=== PATIENT | female | born 1940 | race Caucasian/White ===

== ENCOUNTER 2018-11-12 08:56 | Day surgery (SDC) | payer OTHER ==
--- OUTSIDE RECORDS SUMMARY | 2018-11-12 08:58 | XMS REPORT ---
:1940 Author Organization [facility] Address [address] [place] [address] Dr[address] Moore [address] [place] [id number] Care Team Providers Name Role Phone Unavailable Unavailable Unavailable Payers Payer Name Policy Type Policy Number Effective Date Expiration Date Problems This patient has no known problems. Allergies, Adverse Reactions, Alerts Allergy Allergy Status Severity Reaction(s) Onset Inactive Treating Comments Name Type Date Date Clinician No Known DA Active U 2018-07 Drug -14 Allergies 00:00:0 0 No Known DA Active U 2010-07 Allergies -21 00:00:0 0 Medications This patient has no known medications.
[2018-11-12 09:46] VITALS: TEMP 97.2; O2SAT 95; BMI 38.9
[2018-11-12] MEDS ORDERED: Zoledronic Acid/Mannitol/Water 5 MG/100 ML INFUS.BOT IV NR (10:00)
[2018-11-12 10:01] VITALS: BP 120/78
== END 2018-11-12 10:00 | disposition home health service (06) ==
LOC: DS 08:56
PROVIDERS: ATTEND Internal Medicine
DX: M81.0 Age-related osteoporosis without current pathological fracture (principal); R13.10 Dysphagia, unspecified
CPT/HCPCS: 96365; J3489

== ENCOUNTER 2020-02-19 08:56 | Day surgery (SDC) | payer OTHER ==
--- OUTSIDE RECORDS SUMMARY | 2020-02-19 09:07 | XMS REPORT | Continuity of Care Document ---
:1940 Author Organization [facility] t Address [address] [place] [address] Care Team Providers Name Role Phone Unavailable Unavailable Unavailable Payers Payer Name Policy Type Policy Number Effective Date Expiration Date S ource Problems This patient has no known problems. Allergies, Adverse Reactions, Alerts Allergy Allergy Status Severity Reaction(s) Onset Inactive Treating Comm ents Source Name Type Date Date Clinician No Known DA Active U 2018-0 [facility] [place] [facility] No Known DA Active U 2010-0 [facility] [place] [facility] Medications This patient has no known medications. Procedures This patient has no known procedures. Results This patient has no known results.
[2020-02-19] MEDS ORDERED: Zoledronic Acid/Mannitol/Water 5 MG/100 ML INFUS.BOT IV ONE (09:15)
[2020-02-19 11:41] VITALS: BP 139/74; TEMP 97.1; O2SAT 95; BMI 32.5
== END 2020-02-19 11:15 | disposition home or self-care (01) ==
LOC: DS 08:56
PROVIDERS: ATTEND Internal Medicine
DX: M81.0 Age-related osteoporosis without current pathological fracture (principal); R13.10 Dysphagia, unspecified
CPT/HCPCS: 96365; J3489

== ENCOUNTER 2021-01-21 08:36 | Day surgery (SDC) | payer OTHER ==
[2021-01-21] MEDS ORDERED: Zoledronic Acid/Mannitol/Water 5 MG/100 ML INFUS.BOT IV ONE (09:00)
[2021-01-21 09:20] VITALS: TEMP 97.7; BMI 27.4
[2021-01-21 09:43] VITALS: BP 117/66; O2SAT 98
== END 2021-01-21 09:38 | disposition home or self-care (01) ==
LOC: DS 08:36
PROVIDERS: ATTEND Internal Medicine
DX: M81.0 Age-related osteoporosis without current pathological fracture (principal); R13.10 Dysphagia, unspecified
CPT/HCPCS: 96365; J3489

== ENCOUNTER 2022-02-07 08:38 | Day surgery (SDC) | payer OTHER ==
[2022-02-07] MEDS ORDERED: Zoledronic Acid/Mannitol/Water 5 MG/100 ML INFUS.BOT IV ONE (09:00)
[2022-02-07 09:17] VITALS: BP 113/61; TEMP 97.5; O2SAT 95; BMI 28.3
== END 2022-02-07 09:33 | disposition home or self-care (01) ==
LOC: DS 08:38
PROVIDERS: ATTEND Internal Medicine
DX: M81.0 Age-related osteoporosis without current pathological fracture (principal); R13.10 Dysphagia, unspecified
CPT/HCPCS: 96365; J3489